=== PATIENT | male | born 1960 | race Caucasian/White ===

== ENCOUNTER 2017-03-27 07:12 | Day surgery (SDC) | payer BC ==
[2017-03-27] MEDS ORDERED: LIDOCAINE 2% MDV (20MG/ML) 20ML VIAL IV ONE (14:00)
[2017-03-27] MEDS ORDERED: PROPOFOL 10 MG/ML VIAL IV ONE (14:00)
[2017-03-27] MEDS ORDERED: MIDAZOLAM HCL 2MG/2ML VIAL IV ONE (14:00)
--- NOTE | 2017-03-31 10:33 | Operative Note ---
DATE OF SURGERY: 03/27/2017 OPERATION: COLONOSCOPY with cold snare polypectomy. PREOPERATIVE DIAGNOSIS: Personal history of colon polyps. POSTOPERATIVE DIAGNOSIS: Sigmoid colon polyp. PREPARATION QUALITY: Excellent. ESTIMATED BLOOD LOSS: Minimal. SPECIMENS: Sigmoid polyp. COMPLICATIONS: None apparent. PROCEDURE: After informed consent was obtained from the patient, he was placed in the left lateral decubitus position in the endoscopy suite, sedated and monitored by the department of anesthesia. Digital rectal examination was unremarkable. A well-lubricated [id number] colonoscope was inserted into the rectum and advanced to the cecum. Preparation quality was excellent. The cecum, ileocecal valve, appendiceal orifice, ascending colon, transverse colon, and descending colon were free of inflammatory changes, mass lesions, or polyps. There was a 4 mm sessile polyp in the sigmoid colon removed with a cold snare. Minimal bleeding was noted. The polyp was retrieved without difficulty. The remainder of the sigmoid colon and rectum were unremarkable. Forward and J-turn views of the rectum and anorectum were unremarkable. The endoscope was straightened, the rectal ampulla deflated, and the endoscope was removed. RECOMMENDATIONS: The patient should resume his medications and diet. He will likely require repeat exam in 5 years but the final determination will be based on tissue histology. As always, thank you for allowing me to participate in the healthcare of your patients. CC: GIULIA SINGH MD, FACP [facility]
== END 2017-03-27 09:54 | disposition home or self-care (01) ==
LOC: HOP 07:12
PROVIDERS: ATTEND Internal Medicine Gastroenterology
DX: Z86.010 Personal history of colon polyps (principal); D12.5 Benign neoplasm of sigmoid colon; I10 Essential (primary) hypertension